=== PATIENT | male | born 1995 | race American Indian/Alaskan Native ===

== ENCOUNTER 2016-04-04 21:22 | Emergency (ER) | payer SELFPAY ==
[2016-04-05 03:58] VITALS: BP 138/91
--- NOTE | 2016-04-05 05:03 | Emergency Department Report ---
HPI - General Chief Complaint: Medical Clearance Time Seen by Provider: 04/05/16 04:58 - HPI HPI: This is a 20-year-old Afro[place] male who presents to the emergency department with the request for a work note. Patient says that Sunday evening he drank an excessive alcohol and the following morning and day, Sunday, the patient had intractable nausea, vomiting and abdominal pain. Because of that he missed work that day. The patient was already scheduled off on Sunday but is due back today, Sunday. Patient took some [place] and increased his oral rehydration and got lots of sleep and now he is asymptomatic from his alcohol overdose. He does not have a primary care doctor. He denies any past medical history. ED Past Medical Hx - Past Medical History Previous Medical History?: Yes Hx Psychiatric Treatment: Yes (Anxiety) - Surgical History Past Surgical History?: No - Social History Smoking Status: Never Smoker - Medications Home Medications: Home Medications Medication Instructions Recorded Confirmed Last Taken Type Ibuprofen [Motrin 800 MG tab] 800 mg PO Q8HR PRN #30 tablet 03/04/15 Unknown Rx ED Review of Systems ROS: Stated complaint: MED CLEARANCE Other details as noted in HPI Comment: All other systems reviewed and negative Constitutional: denies: chills, fever Eyes: denies: eye pain, eye discharge, vision change ENT: denies: ear pain, throat pain Respiratory: denies: cough, shortness of breath, wheezing Cardiovascular: denies: chest pain, palpitations Gastrointestinal: denies: abdominal pain, nausea, diarrhea Genitourinary: denies: urgency, dysuria Musculoskeletal: denies: back pain, joint swelling, arthralgia Skin: denies: rash, lesions Neurological: denies: headache, weakness, paresthesias Physical Exam - Physical Exam Vital Signs: Vital Signs 04/04/16 04/05/16 21:41 03:56 Temperature 98.3 F 98.1 F Pulse Rate 83 79 Respiratory 16 Rate Blood Pressure 120/82 Blood Pressure 138/91 [Right] O2 Sat by Pulse 99 97 Oximetry Physical Exam: GENERAL: The patient is well-developed well-nourished. HEENT: Normocephalic. Atraumatic. Extraocular motions are intact. Patient has moist mucous membranes. NECK: Supple. Trachea is midline. CHEST/LUNGS: Clear to auscultation. There is no respiratory distress noted. HEART/CARDIOVASCULAR: Regular. There is no tachycardia. There is no gallop rub or murmur. ABDOMEN: Abdomen is soft, nontender. Patient has normal bowel sounds. There is no abdominal distention. SKIN: There is no rash. There is no diaphoresis. NEURO: The patient is awake, alert, and oriented. The patient is cooperative. The patient has no focal neurologic deficits. The patient has normal speech MUSCULOSKELETAL: There is no tenderness or deformity. There is no limitation range of motion. There is no evidence of acute injury. ED Course Vital Signs 04/04/16 04/05/16 21:41 03:56 Temperature 98.3 F 98.1 F Pulse Rate 83 79 Respiratory 16 Rate Blood Pressure 120/82 Blood Pressure 138/91 [Right] O2 Sat by Pulse 99 97 Oximetry ED Medical Decision Making - Medical Decision Making 20-year-old male presents for a work note. His issues regarding alcohol overdose and subsequent hangover have resolved prior to presentation. I let the patient noted that I cannot write a retroactive work note but I'm willing to give him one for today since it is already 5 in the morning and he has been waiting multiple hours to be seen. Patient's vital signs stable throughout his ED course. No labs necessary at this time. He'll be given some referrals for primary care. He will return to the ER with any acute distress. Critical Care Time: No Critical care attestation.: If time is entered above; I have spent that time in minutes in the direct care of this critically ill patient, excluding procedure time. ED Disposition Clinical Impression: Well adult Disposition: DISCHARGED TO HOME OR SELFCARE Is pt being admited?: No Does the pt Need Aspirin: No Condition: Good Additional Instructions: I will give you some referrals for primary care doctors. I would suggest establishing care with one as you will need annual physicals and for any nonemergent complaints. I recommend staying away from alcohol. Return to the emergency department with any acute distress. Referrals: PRIMARY MD XOCHITL [Primary Care Provider] - 3-5 Days CA MANCILLA MD [Staff Physician] - 3-5 Days SHARIFA BETANCOURT MD [Staff Physician] - 3-5 Days [facility] [Outside] - 3-5 Days Forms: Work/School Release Form(ED) Time of Disposition: 05:05
== END 2016-04-05 05:05 | disposition home or self-care (01) ==
LOC: ED 21:22
DX: F10.129 Alcohol abuse with intoxication, unspecified (principal); R11.2 Nausea with vomiting, unspecified; R10.9 Unspecified abdominal pain
CPT/HCPCS: 99282